=== PATIENT | female | born 1995 | race Caucasian/White ===

== ENCOUNTER 2024-07-08 23:13 | Emergency (ER) | payer MEDICAID ==
[~2024-07-08] VITALS: Ht 162.6 cm; Wt 68.0 kg
[2024-07-08 23:16] VITALS: O2SAT 100
[2024-07-08 23:21] VITALS: BP 139/91; PULSE 112; RESP 20; TEMP 98.3; O2SAT 100
== END 2024-07-09 05:52 | disposition left against medical advice (07) ==
LOC: ER 23:48
DX: R51.9 Headache, unspecified (principal); Z53.21 Procedure and treatment not carried out due to patient leaving prior to being seen by health care provider